=== PATIENT | male | born 1975 | race Asian ===

== ENCOUNTER → 2016-06-16 | Day surgery (SDC) | payer BC ==
[~2016-06-16] MED LIST: ALEVE220 M1 PO; TYL325 PO; ZANTAC150 M1 PO
--- NOTE | ~2016-06-16 | OR ---
Unit #: [id number] #: [id number] Patient: TERRY GARCÍA [id number] [address] [address] [id number] MR#: [id number] NAME: TERRY GARCÍA ROOM: Date of Procedure: 06/16/2016 Admission Date: 06/16/2016 Surgeon: Alvino Shaw M.D. : 1975 Attending Physician: Alvino Shaw M.D. Primary Care Physician: Primary Care Physician No OPERATIVE REPORT PREOPERATIVE DIAGNOSIS Multiple lipomas in right and left upper extremities. POSTOPERATIVE DIAGNOSIS Multiple lipomas in right and left upper extremities. PROCEDURES PERFORMED 1. Excision of lipoma x10, right upper extremity with primary closure. 2. Excision of lipomas x6, left upper extremity with primary closure. ANESTHESIA 1% Xylocaine plain local anesthesia. FINDINGS Each was consistent with a lipoma 1 to 1.5 cm in size and sent to Pathology. SPECIMENS Sent to Pathology. COMPLICATIONS None apparent. CONDITION The patient tolerated the procedure well. INDICATIONS FOR PROCEDURE The patient is a 41-year-old male, who presents at this time with multiple lipomas that have increased in size and became increasingly bothersome and worrisome to him. He had multiple lipomas removed in the past. He presents at this time for excision for pathologic diagnosis and treatment. DESCRIPTION OF PROCEDURE After obtaining informed consent, the patient was brought to the operating room and after sterile prep as well as circumferential sterile prep and drape of both upper extremities, had each of the 10 lipomas on the right upper extremity and 6 lipomas on the left upper extremity anesthetized with 1% Xylocaine plain local anesthesia. In each location, a small incision was made. Dissection was taken down to the level of the lesion with the electrocautery. The lesion was bluntly dissected free from the surrounding structures and the feeding vessels were taken with the electrocautery with good hemostasis. Each wound was irrigated and Unit #: [id number] #: [id number] Patient: TERRY GARCÍA hemostasis was obtained with the Bovie. Wounds were closed with surgical felipe. A dry dressing was applied in each location. Needle counts, sponge counts, and instrument counts were all correct as reported by the scrub nurse x2. The patient went from the operating room to the recovery room in stable condition. RECOMMENDATIONS The patient will follow up in 1 weeks time. Dictated by... Frances Dove/dejan TD: 06/16/2016 13:33 JOB #: [id number] CC: [facility] OPERATIVE REPORT X Alvino Shaw MD X PROCEDURE OPERATIVE NOTE
== END | disposition home or self-care (01) ==
LOC: CSUR 09:23
DX: D17.22 Benign lipomatous neoplasm of skin and subcutaneous tissue of left arm (principal); D17.21 Benign lipomatous neoplasm of skin and subcutaneous tissue of right arm; M79.89 Other specified soft tissue disorders; M17.9 Osteoarthritis of knee, unspecified; E55.9 Vitamin D deficiency, unspecified; E78.5 Hyperlipidemia, unspecified; Z88.8 Allergy status to other drugs, medicaments and biological substances; Z98.890 Other specified postprocedural states
CPT/HCPCS: 88304